=== PATIENT | female | born 1950 | race Caucasian/White ===

== ENCOUNTER → 2017-02-01 | Outpatient (CLI) | payer MEDICARE ==
[~2017-02-01] MED LIST: AMIO200T42 PO; ASPI-621 PO; ASPI-650 PO; ATEN50TA41 PO; ATOR40TA PO; ATOR40TA78 PO; CETI-18 PO; CLOP75TA PO; CLOP75TA22 PO; DIPH25CA61 PO; FURO-93 PO; FURO40TA6 PO; INSU100I28 SQ-INSULIN; INSU100V10 SQ-INSULIN; LANS15CA5 PO; LISI-167 PO; LOVA40TA2 PO; MAGN400T26 PO; MAGN400T7 PO; METF500T4 PO; METO50TA82 PO; MULT-230 PO; MULT-516 PO; NIAC500C8 PO; NITR0.4T SL; NPH,100V4 SC; OXYC1TAB8 PO; POTA10TA5 PO
== END | disposition home or self-care (01) ==
LOC: CVU 13:43
PROVIDERS: ATTEND Surgery
DX: I65.23 Occlusion and stenosis of bilateral carotid arteries (principal)
CPT/HCPCS: 93880

== ENCOUNTER → 2017-12-22 | Outpatient (CLI) | payer MEDICARE ==
[~2017-12-22] MED LIST changes: +AMLO5TAB2 PO; +APIX5TAB PO; +ASPI-496 PO; -CLOP75TA22 PO; +CLOP75TA52 PO; +HYDR25TA11 PO; -INSU100V10 SQ-INSULIN; +INSU100V11 SQ-INSULIN; -NPH,100V4 SC; +NPH,100V5 SC; +POTASSIUM PO; +TEMA15CA PO; +TRAM50TA2 PO
== END | disposition home or self-care (01) ==
LOC: CFH 09:44
PROVIDERS: ATTEND Family Medicine
DX: Z12.31 Encounter for screening mammogram for malignant neoplasm of breast (principal); Z13.820 Encounter for screening for osteoporosis; M81.0 Age-related osteoporosis without current pathological fracture; N95.9 Unspecified menopausal and perimenopausal disorder
CPT/HCPCS: 77080; 77067

== ENCOUNTER → 2018-03-02 | Outpatient (CLI) | payer MEDICARE ==
[~2018-03-02] MED LIST changes: +REGADENOSON 0.4 MG/5 ML SYRINGE ONE
== END ==
LOC: CFH 07:51
PROVIDERS: ATTEND Physician Assistant
DX: I25.9 Chronic ischemic heart disease, unspecified (principal)
CPT/HCPCS: 78452; 93017; A9502; J2785

== ENCOUNTER → 2018-03-15 | Outpatient (CLI) | payer MEDICARE ==
[~2018-03-15] MED LIST changes: -REGADENOSON 0.4 MG/5 ML SYRINGE ONE
== END | disposition home or self-care (01) ==
LOC: CFH 08:46
PROVIDERS: ATTEND Nurse Practitioner
DX: Z12.2 Encounter for screening for malignant neoplasm of respiratory organs (principal); I70.8 Atherosclerosis of other arteries; Z87.891 Personal history of nicotine dependence
CPT/HCPCS: G0297

== ENCOUNTER → 2019-02-26 | Outpatient (CLI) | payer MEDICARE ==
[~2019-02-26] MED LIST changes: +AMLO-150 PO; -AMLO5TAB2 PO; -ASPI-621 PO; +ASPI81TA45 PO; +METF500T17 PO; -METF500T4 PO; -MULT-230 PO; +MULT-806 PO
== END | disposition home or self-care (01) ==
LOC: CFH 13:42
PROVIDERS: ATTEND Family Medicine
DX: N63.10 Unspecified lump in the right breast, unspecified quadrant (principal)
CPT/HCPCS: 76641; 77066; G0279

== ENCOUNTER → 2019-02-28 | Outpatient (CLI) | payer MEDICARE | END | disposition home or self-care (01) | LOC: CFH 10:18 | PROVIDERS: ATTEND Internal Medicine Cardiovascular Disease | DX: I08.0 Rheumatic disorders of both mitral and aortic valves (principal); I25.10 Atherosclerotic heart disease of native coronary artery without angina pectoris | CPT/HCPCS: 93306 ==